=== PATIENT | female | born 1980 | race African-American/Black ===

== ENCOUNTER 2020-06-26 11:34 | Emergency (ER) | payer SELFPAY ==
--- OUTSIDE RECORDS SUMMARY | 2020-06-26 11:40 | XMS REPORT | Continuity of Care Document ---
:1980 Author Organization [facility] t Address [address] [place] [address] Dr. Jaimes [address] [place] [id number] Care Team Providers Name Role Phone Unavailable Unavailable Unavailable Problems This patient has no known problems. Allergies, Adverse Reactions, Alerts This patient has no known allergies or adverse reactions. Medications This patient has no known medications. Procedures This patient has no known procedures. Results This patient has no known results.
--- NOTE | 2020-06-26 14:13 | ER ---
Nurse's Notes [facility] Name: Baudilio Pagan Age: 40 yrs Sex: Female : 1980 Arrival Date: 06/26/2020 Time: 11:37 Bed 7 Private MD: Diagnosis: PICC Line malfunction Presentation: 06/26 11:45 Chief complaint: Patient states: Midline to R upper arm placed at [facility] for ss antibiotic therapy. Pt reports that her home health nurse instructed her to come to the ED to have it removed because it looks like it may be leaking. Coronavirus screen: Client denies travel out of the [place] in the last 14 days. At this time, the client does not indicate any symptoms associated with coronavirus-19. Ebola Screen: Patient denies exposure to infectious person. Patient denies travel to an Ebola-affected area in the 21 days before illness onset. Initial Sepsis Screen: Does the patient meet any 2 criteria? No. Patient's initial sepsis screen is negative. Does the patient have a suspected source of infection? No. Patient's initial sepsis screen is negative. Risk Assessment: Do you want to hurt yourself or someone else? Patient reports no desire to harm self or others. Onset of symptoms is unknown. 11:45 Method Of Arrival: Wheelchair 11:45 Acuity: ZAYRA 4 ss Historical: - Allergies: 11:48 Lisinopril; ss - PSHx: 11:48 Tubal ligation; ss - Immunization history:: Adult Immunizations up to date. - Social history:: Smoking status: Patient denies any tobacco usage or history of. Screenin:09 Abuse screen: Denies threats or abuse. Denies injuries from another. Nutritional ph screening: No deficits noted. Tuberculosis screening: No symptoms or risk factors identified. Fall Risk None identified. Assessment: 12:27 General: Appears in no apparent distress. comfortable, obese, well groomed, Behavior is ph calm, cooperative, appropriate for age, Denies fever. 14:04 Pain: Denies pain. Neuro: Level of Consciousness is awake, alert, obeys commands, ph Oriented to person, place, time, situation. Cardiovascular: Capillary refill < 3 seconds in bilateral fingers Patient's skin is warm and dry. Respiratory: Airway is patent Respiratory effort is even, unlabored, Respiratory pattern is regular, symmetrical. Derm: Skin is healthy with good turgor, Skin is pink, warm \T\ dry. Musculoskeletal: Circulation, motion, and sensation intact. Range of motion: intact in all extremities. 14:14 Reassessment: Pt reports leaking from mid-line, removed dressing and attempted to flush ph w/ NS, pt reported pain when flushing, fluid noted to be leaking from insertion site, ERP notified, verbal order received to d/c line, pt tolerated well, catheter appears to be intact, pressure dressing placed to R upper arm. 14:37 Reassessment: Patient appears in no apparent distress at this time. Patient and/or ph family updated on plan of care and expected duration. Pain level reassessed. Patient is alert, oriented x 3, equal unlabored respirations, skin warm/dry/pink. Pt instructed to follow up w/ PCP to see if mid-line needs to be replaced, d/c home. Vital Signs: 11:45 BP 144 / 97; Pulse 115; Resp 16; Temp 98.4(TE); Pulse Ox 98% on R/A; Weight 108.86 kg; ss Height 5 ft. 7 in. (170.18 cm); Pain 0/10; 14:37 BP 138 / 78; Pulse 101; Resp 18; Temp 98.1; Pulse Ox 99% on R/A; ph 11:45 Body Mass Index 37.59 (108.86 kg, 170.18 cm) ED Course: 11:37 Patient arrived in ED. ds1 11:48 Triage completed. ss 11:48 Arm band placed on right wrist. ss 11:54 Andi Avalos, RN is Primary Nurse. ll1 12:08 Mary Mooney, RN is Primary Nurse. ph 12:09 Patient has correct armband on for positive identification. Bed in low position. Call ph light in reach. Side rails up X 1. Pulse ox on. NIBP on. Door closed. Noise minimized. Warm blanket given. 12:16 Benja Renee MD is Attending Physician. kdr 14:12 Accessed Mid-line to R upper arm using per hospital protocol. Dressing intact. IV ph discontinued. 14:38 No provider procedures requiring assistance completed. ph Administered Medications: No medications were administered Outcome: 14:12 Discharge ordered by . kdr 14:38 Discharged to home via wheelchair, with family. ph 14:38 Condition: good 14:38 Discharge instructions given to patient, Instructed on discharge instructions, follow up and referral plans. Demonstrated understanding of instructions, follow-up care. 14:40 Patient left the ED. ph Signatures: Benja Renee MD MD [facility] Lidia Cartwright ds1 Esthela Gonzales RN RN ss Mary Mooney RN RN ph Andi Avalos RN RN ll1 Corrections: (The following items were deleted from the chart) 14:12 12:27 General: Appears ph ph
--- NOTE | 2020-06-26 14:13 | EDPHYS ---
Physician Documentation [facility] Name: Baudilio Pagan Age: 40 yrs Sex: Female : 1980 Arrival Date: 06/26/2020 Time: 11:37 Bed 7 Private MD: ED Physician Benja Renee HPI: 06/26 16:52 This 40 yrs old Black Female presents to ER via Wheelchair with complaints of Picc Line kdr Leaking Fluid. 16:52 The patient noted in since last night that she has had fluid leaking from the PIC line. kdr She noted slight discomfort around the line. 17:51 Onset: The symptoms/episode began/occurred last night. Severity of symptoms: At their kdr worst the symptoms were very mild in the emergency department the symptoms are unchanged. The patient has not experienced similar symptoms in the past. The patient has not recently seen a physician. The patient is being treated for unknown infection and has had a PIC line installed. She noted last night that she was unable to infuse fluids and that there was clear fluid leaking when she tried to infused her medications. Historical: - Allergies: 11:48 Lisinopril; ss - PSHx: 11:48 Tubal ligation; ss - Immunization history:: Adult Immunizations up to date. - Social history:: Smoking status: Patient denies any tobacco usage or history of. ROS: 17:51 Constitutional: Negative for fever, chills, and weight loss. kdr 17:51 MS/extremity: Positive for PIC line in right upper arm intact but apparently non-fuctional. Exam: 17:51 Constitutional: This is a well developed, well nourished patient who is awake, alert, kdr and in no acute distress. Head/Face: Normocephalic, atraumatic. Eyes: Pupils equal round and reactive to light, extra-ocular motions intact. Lids and lashes normal. Conjunctiva and sclera are non-icteric and not injected. Cornea within normal limits. Periorbital areas with no swelling, redness, or edema. 17:51 Musculoskeletal/extremity: Extremities: noted in the right bicep and right antecubital area: PIC line in place but non-functional. Vital Signs: 11:45 BP 144 / 97; Pulse 115; Resp 16; Temp 98.4(TE); Pulse Ox 98% on R/A; Weight 108.86 kg; ss Height 5 ft. 7 in. (170.18 cm); Pain 0/10; 14:37 BP 138 / 78; Pulse 101; Resp 18; Temp 98.1; Pulse Ox 99% on R/A; ph 11:45 Body Mass Index 37.59 (108.86 kg, 170.18 cm) ss MDM: 14:12 Patient medically screened. kdr 17:51 Data reviewed: vital signs, nurses notes. Counseling: I had a detailed discussion with kdr the patient and/or guardian regarding: the historical points, exam findings, and any diagnostic results supporting the discharge/admit diagnosis, the need for outpatient follow up. Administered Medications: No medications were administered Disposition: 06/26/20 14:12 Discharged to Home. Impression: PICC Line malfunction. - Condition is Stable. - Medication Reconciliation Form, Thank You Letter form. - Follow up: Private Physician; When: 2 - 3 days; Reason: If symptoms return, Further diagnostic work-up, Recheck today's complaints, Continuance of care, Re-evaluation by your physician. - Problem is new. - Symptoms are resolved. - Notes: You will need to follow-up with your doctor to have the PIC line replaced if still needed Signatures: Benja Renee MD MD [facility] Esthela Gonzales RN RN Mary Mooney RN RN ph Corrections: (The following items were deleted from the chart) 14:40 14:12 06/26/2020 14:12 Discharged to Home. Impression: PICC Line malfunction. Condition ph is Stable. Forms are Medication Reconciliation Form, Thank You Letter, Antibiotic Education, Prescription Opioid Use. Follow up: Private Physician; When: 2 - 3 days; Reason: If symptoms return, Further diagnostic work-up, Recheck today's complaints, Continuance of care, Re-evaluation by your physician. Problem is new. Symptoms are resolved. kdr
[2020-06-26 14:46] VITALS: BP 138/78; TEMP 98.1; O2SAT 99
== END 2020-06-26 14:40 | disposition home or self-care (01) ==
LOC: ER 11:34
DX: T82.898A Other specified complication of vascular prosthetic devices, implants and grafts, initial encounter (principal); Z88.8 Allergy status to other drugs, medicaments and biological substances
CPT/HCPCS: 99284

== ENCOUNTER 2025-03-20 18:26 | Emergency (ER) | payer OTHER, SELFPAY ==
[2025-03-20 19:12] LABS: Absolute Basophils 0.1 K/uL (0-0.5); Absolute Eosinophils 0.1 K/uL (0-0.5); Absolute Lymphocytes (CBC) 1.4 K/uL (0.7-4.9); Absolute Neutrophil 9.9 K/uL (1.8-8.0); Basophils % 0.6 % (0-1.3); Eosinophils % 0.6 % (0-4.4); Hematocrit 33.2 % (36.0-45.0); Hemoglobin 10.8 g/dL (12.0-15.0); Lymphocytes % 11.5 % (15.3-44.8); MCH 32.4 pg (27.0-35.0); MCHC 32.6 g/dL (32.0-36.0); MCV 99.5 fL (80-100); MPV 8.3 fL (7.6-11.3); Monocytes % 7.7 % (3.3-12.3); Neutrophils % 79.6 % (41.7-73.7); Platelets 284 thou/uL (152-406); RBC Red Blood Cell Count 3.33 M/uL (3.86-4.86); Red Cell Distribution Width 19.3 % (12.1-15.2)
[2025-03-20 19:29] LABS: ALT/SGPT 16 U/L (13-56); Albumin 3.2 g/dL (3.4-5.0); Albumin/Globulin Ratio 0.7 (1.1-1.8); Alkaline Phosphatase 55 U/L (45-117); Anion Gap 10.5 mEq/L (5.0-15.0); BUN Blood Urea Nitrogen 17 mg/dL (7-18); Bicarbonate 23 mEq/L (21-32); Bilirubin Total 0.2 mg/dL (0.2-1.0); Globulin 4.3 g/dL (2.3-3.5); Glomerular Filtration Rate 79 ml/min (=/>90); Glucose Level 113 mg/dL (74-106); Magnesium 1.5 mg/dL (1.6-2.4); Potassium 3.5 mEq/L (3.5-5.1); Protein, Total 7.5 g/dL (6.4-8.2); Sodium Level 138 mEq/L (136-145); Troponin High Sensitivity 12.8 pg/mL (<58.9)
[2025-03-20 19:30] LABS: AST/SGOT < 10 U/L (15-37); Bilirubin Direct < 0.2 mg/dL (0-0.2)
[2025-03-20 19:39] LABS: Specific Gravity 1.023 (1.005-1.030)
[2025-03-20 19:40] LABS: Specific Gravity 1.023 (1.005-1.030); Urine Bacteria None Seen /HPF (<20); Urine Bilirubin NEGATIVE (Negative); Urine Blood Negative (Negative); Urine Clarity Turbid (Clear); Urine Color Light-Yellow (Yellow); Urine Culture Reflex Order NOT NEEDED; Urine Glucose NEGATIVE (Negative); Urine Ketones NEGATIVE (Negative); Urine Microscopic Reflex YN ORDER UMIC; Urine Mucus Slight /HPF (None Seen); Urine Nitrite NEGATIVE (Negative); Urine Protein 2+ (Negative); Urine RBC <5 /HPF (None Seen); Urine Urobilinogen Normal (Normal); Urine WBC Clump Rare /HPF (None Seen); Urine Yeast (Budding) Trace /HPF (None Seen)
[2025-03-20] MEDS ORDERED: NA CHLORIDE 0.9% 100 ML ONE (19:43)
[2025-03-20] MEDS ORDERED: NA CHLORIDE 0.9% 1,000 ML ONE (19:43)
[2025-03-20] MEDS ORDERED: LEVETIRACETAM 500 MG/5 ML VIAL IV ONE (19:43)
[2025-03-20 19:48] LABS: Barbiturates NEGATIVE (NEGATIVE); Benzodiazepines NEGATIVE (NEGATIVE); Cocaine NEGATIVE (NEGATIVE); METHAMPHETAM NEGATIVE (NEGATIVE); Methadone NEGATIVE (NEGATIVE); Opiates NEGATIVE (NEGATIVE); Phencyclidine NEGATIVE (NEGATIVE); THC Cannibis NEGATIVE (NEGATIVE)
--- NOTE | 2025-03-20 19:56 | RAD REPORT ---
EXAMINATION: Head Brain Wo Cont CLINICAL INDICATION: Female, 44 years old.SEIZURE TECHNIQUE: Axial CT images from the skull base to the vertex without intravenous contrast. Coronal an d sagittal reformatted images were created from the data set. One or more of the following dose reduction techniques were used: Automated exposure control, adjustment of the mA and/or kV according to patient size, and/or iterative reconstruction. Unless otherwise specified, incidental findings do not require dedicated imaging follow-up. [id number]. COMPARISON: No prior exam. FINDINGS: INTRACRANIAL: No acute intracranial hemorrhage. No hydrocephalus. No mass effect or midline shift. No significant white matter disease. Empty sella, typically a normal variant. VASCULATURE: No visualized abnormalities in the arteries or dural venous sinuses. SCALP/SKULL: No calvarial fracture identified. No acute soft tissue abnormality. SINUSES: Circumferential thickening of maxillary sinuses as well as several ethmoid air cells and the left frontal sinus. No significant mastoid fluid. IMPRESSION: No acute intracranial abnormality. Paranasal sinus inflammatory disease.
--- NOTE | 2025-03-20 20:44 | ER ---
Nurse's Notes [facility] Name: Baudilio Pagan Age: 44 yrs Sex: Female : 1980 Arrival Date: 03/20/2025 Time: 18:26 Bed 7 Private MD: Diagnosis: Other seizures Presentation: 03/20 18:27 Chief complaint: EMS states: toned out to patient home for seizures. Pt reports having ld1 seizures more frequently, began having seizures for unknown reason in September. Neurology appt set for 04/25/25. Denies pain/injury. Coronavirus screen: At this time, the client does not indicate any symptoms associated with coronavirus-19. Ebola Screen: No symptoms or risks identified at this time. Initial Sepsis Screen: Does the patient meet any 2 criteria? No. Patient's initial sepsis screen is negative. Does the patient have a suspected source of infection? No. Patient's initial sepsis screen is negative. Risk Assessment: Do you want to hurt yourself or someone else? Patient reports no desire to harm self or others. Onset of symptoms was March 20, 2025 at 18:30. 18:27 Method Of Arrival: EMS: [facility] ld1 18:27 Acuity: ZAYRA 3 ld1 Triage Assessment: 18:34 General: Appears in no apparent distress. comfortable, Behavior is calm, cooperative, ld1 appropriate for age. Pain: Denies pain. EENT: No signs and/or symptoms were reported regarding the EENT system. Neuro: Level of Consciousness is awake, alert, obeys commands, Oriented to person, place, time, situation, Seizure activity reported prior to arrival. Cardiovascular: Capillary refill < 3 seconds Patient's skin is warm and dry. Respiratory: Airway is patent Respiratory effort is even, unlabored. GI: Abdomen is round non-distended. : No signs and/or symptoms were reported regarding the genitourinary system. Derm: No signs and/or symptoms reported regarding the dermatologic system. Musculoskeletal: No signs and/or symptoms reported regarding the musculoskeletal system. CERTIFIED CAREGIVER: 21:02 unknown al5 Historical: - Allergies: 18:30 Lisinopril; ld1 - Home Meds: 18:30 carvedilol oral [Active]; amlodipine [Active]; Hydralazine Oral [Active]; losartan oral ld1 [Active]; Ferrous Sulfate Oral [Active]; - PMHx: 18:30 Hypertensive disorder; Anemia; ld1 - Immunization history:: Adult Immunizations up to date. - Infectious Disease History:: Denies. - Social history:: Smoking status: Patient denies any tobacco usage or history of. Screenin:20 [facility] ED Fall Risk Assessment (Adult) History of falling in the last 3 months, al5 including since admission No falls in past 3 months (0 pts) Confusion or Disorientation No (0 pts) Intoxicated or Sedated No (0 pts) Impaired Gait No (0 pts) Mobility Assist Device Used No (0 pt) Altered Elimination No (0 pt) Score/Fall Risk Level 0 - 2 = Low Risk Oriented to surroundings, Maintained a safe environment, Hourly rounding (assess needs \T\ fall precautionary measures) done. Abuse screen: Denies threats or abuse. Denies injuries from another. Nutritional screening: No deficits noted. Tuberculosis screening: No symptoms or risk factors identified. Assessment: 19:20 General: Appears in no apparent distress. comfortable, Behavior is calm, cooperative. al5 Pain: Denies pain. Neuro: Level of Consciousness is awake, alert, obeys commands, Oriented to person, place, time, situation. Cardiovascular: Capillary refill < 3 seconds Patient's skin is warm and dry. Rhythm is sinus rhythm. Respiratory: Airway is patent Respiratory effort is even, unlabored, Respiratory pattern is regular, symmetrical. GI: No signs and/or symptoms were reported involving the gastrointestinal system. : No signs and/or symptoms were reported regarding the genitourinary system. EENT: No signs and/or symptoms were reported regarding the EENT system. Derm: Skin is intact, is healthy with good turgor, Skin is pink, warm \T\ dry. normal. Musculoskeletal: No signs and/or symptoms reported regarding the musculoskeletal system. 20:33 Reassessment: Patient appears in no apparent distress at this time. No changes from al5 previously documented assessment. Patient and/or family updated on plan of care and expected duration. Pain level reassessed. Patient is alert, oriented x 3, equal unlabored respirations, skin warm/dry/pink. Vital Signs: 18:27 BP 128 / 85; Pulse 107; Resp 18; Temp 97.6(TE); Pulse Ox 97% on R/A; Weight 122.47 kg; ld1 Height 5 ft. 9 in. ; Pain 0/10; 19:30 BP 124 / 57; Pulse 79; Resp 18; Pulse Ox 99% ; al5 20:00 BP 113 / 66; Pulse 78; Resp 17; Pulse Ox 96% ; al5 20:30 BP 116 / 67; Pulse 74; Resp 15; Pulse Ox 98% ; al5 21:02 BP 116 / 61; Pulse 79; Resp 18; Pulse Ox 96% ; al5 18:27 Body Mass Index 39.87 (122.47 kg, 175.26 cm) ld1 18:27 Pain Scale: Adult ld1 [place] Coma Score: 18:34 Eye Response: spontaneous(4). Motor Response: obeys commands(6). Verbal Response: ld1 oriented(5). Total: 15. ED Course: 18:27 Patient arrived in ED. ld1 18:30 Triage completed. ld1 18:34 Arm band placed on right wrist. ld1 18:38 Megan Kumar PA-C is PHCP. sb4 18:38 Moe Tracy MD is Attending Physician. sb4 18:58 Inserted saline lock: 20 gauge in left antecubital area, using aseptic technique. Blood ld1 collected. Flushed with 10 mL NS. 19:12 Nicolas Vasquez, SAAD is Primary Nurse. bp 19:20 Patient has correct armband on for positive identification. Bed in low position. Call al5 light in reach. Side rails up X2. Seizure precautions initiated. Provided Education on: plan of care. 19:43 CT Head Brain wo Cont In Process Unspecified. EDMS 20:34 No provider procedures requiring assistance completed. al5 20:44 Leonel Cardenas MD is Referral Physician. sb4 21:03 IV discontinued, intact, bleeding controlled, No redness/swelling at site. Pressure al5 dressing applied. Administered Medications: 20:07 Drug: NS 0.9% IV 1000 ml IV at 1000 ml once; to be given as a bolus over 60 minutes al5 Route: IV; Rate: 1000 ml; Site: left antecubital; 21:03 Follow up: Response: No adverse reaction; IV Status: Completed infusion; IV Intake: al5 1000ml 20:07 Drug: Keppra IV 1000 mg IV at calculated rate once Route: IV; Rate: calculated rate; al5 Site: left antecubital; 20:30 Follow up: Response: No adverse reaction; IV Status: Completed infusion; IV Intake: al5 100ml 21:00 Drug: Magnesium PO 400 mg PO once Route: PO; al5 21:00 Follow up: Response: No adverse reaction; Medication administered at discharge. al5 Medication: 20:35 VIS not applicable for this client. al5 Intake: 20:30 IV: 100ml; Total: 100ml. al5 21:03 IV: 1000ml; Total: 1100ml. al5 Outcome: 20:44 Discharge ordered by MD. sb4 21:03 Discharged to home ambulatory, with family, al5 21:03 Condition: good 21:03 Discharge instructions given to patient, Instructed on discharge instructions, follow up and referral plans. medication usage, Demonstrated understanding of instructions, follow-up care, medications, Prescriptions given X 2, 21:24 Patient left the ED. vc1 Signatures: Dispatcher [employer] EDNicolas Hanson RN Dayis Arevalo RN RN ld1 Brenda Flores RN RN vc1 Megan Kumar PA-Korin PA-C [email or web address] Aurelia Melo RN RN al5 Corrections: (The following items were deleted from the chart) 18:34 18:30 Allergies: Hydrocodone-Acetaminophen; ld1 ld1
--- NOTE | 2025-03-20 20:44 | EDPHYS ---
Physician Documentation [facility] Name: Baudilio Pagan Age: 44 yrs Sex: Female : 1980 Arrival Date: 03/20/2025 Time: 18:26 Bed 7 Private MD: ED Physician Moe Tracy HPI: 03/20 23:24 This 44 yrs old Black Female presents to ER via EMS with complaints of Seizure. sb4 23:25 Patient states that she has had a few seizures within the past 5 months. She states sb4 that she has been seen at several different hospitals, had blood work and CT scans done and just told to follow-up. She has not been put on any medications. States that initially, she believes the seizures were generalized shaking with a postictal phase but most recently she states that she is she has been having episodes where she feels that she blanks out and does not remember what happens. She thinks she had 2 today. She is not postictal upon arrival. Has no complaints at this time. 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 - Infectious Disease History:: Denies. - Social history:: Smoking status: Patient denies any tobacco usage or history of. ROS: 23:25 Constitutional: Negative for fever, chills, and weight loss, sb4 23:25 Neuro: Positive for seizure activity, 23:25 All other systems are negative, Exam: 23:25 Constitutional: This is a well developed, well nourished patient who is awake, alert, sb4 and in no acute distress. Head/Face: Normocephalic, atraumatic. Eyes: Extra-ocular motions intact. Periorbital areas with no swelling, redness, or edema. ENT: Mucous membranes moist. Cardiovascular: Regular rate and rhythm with a normal S1 and S2. Respiratory: No increased work of breathing, no retractions or nasal flaring. Abdomen/GI: Soft, non-tender, no distension. Skin: Warm, dry with normal turgor. Normal color with no rashes, no lesions, and no evidence of cellulitis. MS/ Extremity: Pulses equal, no cyanosis. Neurovascular intact. Full, normal range of motion. Neuro: Awake and alert, GCS 15, oriented to person, place, time, and situation. Motor strength 5/5 in all extremities. Sensory grossly intact. Vital Signs: 18:27 BP 128 / 85; Pulse 107; Resp 18; Temp 97.6(TE); Pulse Ox 97% on R/A; Weight 122.47 kg; ld1 Height 5 ft. 9 in. ; Pain 0/10; 19:30 BP 124 / 57; Pulse 79; Resp 18; Pulse Ox 99% ; al5 20:00 BP 113 / 66; Pulse 78; Resp 17; Pulse Ox 96% ; al5 20:30 BP 116 / 67; Pulse 74; Resp 15; Pulse Ox 98% ; al5 21:02 BP 116 / 61; Pulse 79; Resp 18; Pulse Ox 96% ; al5 18:27 Body Mass Index 39.87 (122.47 kg, 175.26 cm) ld1 18:27 Pain Scale: Adult ld1 Trisha Coma Score: 18:34 Eye Response: spontaneous(4). Motor Response: obeys commands(6). Verbal Response: ld1 oriented(5). Total: 15. MDM: 18:40 Medical Screening Exam initiated sb4 23:26 Data reviewed: vital signs, nurses notes, EMS record, lab test result(s), radiologic sb4 studies, and as a result, I will discharge patient. Counseling: I had a detailed discussion with the patient and/or guardian regarding the historical points, exam findings, and any diagnostic results supporting the discharge/admit diagnosis, lab results, radiology results, the need for outpatient follow up, a neurologist, to return to the emergency department if symptoms worsen or persist or if there are any questions or concerns that arise at home. ED course: Patient has neurology appointment scheduled for the beginning of April. Will start patient on Keppra 500 mg twice daily. She is instructed to return to the ED for any new or worsening symptoms. She is in agreement with plan. 03/20 18:39 Order name: Basic Metabolic Panel; Complete Time: 19:33 sb4 03/20 18:39 Order name: CBC with Diff; Complete Time: 19:34 sb4 03/20 18:39 Order name: Hepatic Function; Complete Time: 19:33 sb4 03/20 18:39 Order name: Magnesium; Complete Time: 19:33 sb4 03/20 18:39 Order name: Test, Urine; Complete Time: 19:41 sb4 03/20 18:39 Order name: Troponin High Sensitivity; Complete Time: 19:33 sb4 03/20 18:39 Order name: UDS; Complete Time: 19:48 sb4 03/20 18:39 Order name: Urinalysis w/ reflexes; Complete Time: 19:41 sb4 03/20 18:39 Order name: CT Head Brain wo Cont; Complete Time: 19:58 sb4 03/20 18:39 Order name: EKG; Complete Time: 18:39 sb4 03/20 18:39 Order name: EKG - Nurse/Tech; Complete Time: 20:30 sb4 03/20 18:39 Order name: IV Saline Lock; Complete Time: 18:58 sb4 03/20 18:39 Order name: Labs collected and sent; Complete Time: 18:58 sb4 EC:07 Rate is 78 beats/min. Rhythm is regular, Normal Sinus Rhythm. [place] interval is normal at sb4 174 msec. QRS interval is normal at 88 msec. QT interval is normal at 384 msec. No Q waves. T waves are Normal. No ST changes noted. Clinical impression: No evidence of ischemia. Interpreted by me. Reviewed by me. Administered Medications: 20:07 Drug: NS 0.9% IV 1000 ml IV at 1000 ml once; to be given as a bolus over 60 minutes al5 Route: IV; Rate: 1000 ml; Site: left antecubital; 21:03 Follow up: Response: No adverse reaction; IV Status: Completed infusion; IV Intake: al5 1000ml 20:07 Drug: Keppra IV 1000 mg IV at calculated rate once Route: IV; Rate: calculated rate; al5 Site: left antecubital; 20:30 Follow up: Response: No adverse reaction; IV Status: Completed infusion; IV Intake: al5 100ml 21:00 Drug: Magnesium PO 400 mg PO once Route: PO; al5 21:00 Follow up: Response: No adverse reaction; Medication administered at discharge. al5 Disposition Summary: 03/20/25 20:44 Discharge Ordered Notes: Location: Home sb4 Problem: new sb4 Symptoms: have improved sb4 Condition: Stable sb4 Diagnosis - Other seizures sb4 Followup: sb4 - With: Leonel Cardenas MD - When: As needed - Reason: Further diagnostic work-up, Recheck today's complaints, Re-evaluation by your physician Discharge Instructions: - Discharge Summary Sheet sb4 - Hypomagnesemia sb4 - Seizure, Adult sb4 Forms: - Patient Portal Instructions sb4 - Leadership Thank You Letter sb4 Prescriptions: - Hydroxyzine HCl 50 mg Oral tablet - take 1 tablet ORAL route At bedtime As needed; 20 tablet; Refills: 0, Product sb4 Selection Permitted - Keppra 500 mg Oral tablet - take 1 tablet ORAL route every 12 hours; 40 tablet; Refills: 0, Product sb4 Selection Permitted Addendum: 03/22/2025 07:04 Co-signature as Attending Physician, Moe Tracy MD. r n Signatures: Dispatcher [employer] EDMoe Diallo MD MD rn Sims, Lauren, RN RN ld1 Megan Kumar PA-C PAFloydC sb4 Aurelia Melo RN RN al5 Corrections: (The following items were deleted from the chart) 03/20 18:34 18:30 Allergies: Hydrocodone-Acetaminophen; ld1 ld1 18:39 18:39 BASIC METABOLIC PANEL+C.LAB.BRZ ordered. EDMS EDMS 18:39 18:39 CBC+H.LAB.BRZ ordered. EDMS EDMS 18:39 18:39 HEPATIC FUNCTION+C.LAB.BRZ ordered. EDMS EDMS 18:39 18:39 MAGNESIUM+C.LAB.BRZ ordered. EDMS EDMS 18:39 18:39 Test, Urine+UC.LAB.BRZ ordered. EDMS EDMS 18:39 18:39 Troponin High Sensitivity+C.LAB.BRZ ordered. EDMS EDMS 18:39 18:39 URINE DRUG SCREEN+UC.LAB.BRZ ordered. EDMS EDMS 18:40 18:39 Urinalysis+U.LAB.BRZ ordered. EDMS EDMS
[2025-03-20] MEDS ORDERED: MAGNESIUM OXIDE 400 MG TAB ONE (20:49)
[2025-03-21 08:52] VITALS: TEMP 97.6
[2025-03-21 08:58] VITALS: BP 116/61; O2SAT 96
--- NOTE | 2025-03-22 11:58 | EKG ---
Test Date: 2025-03-20 Test Time: 19:55:16 Sorting Machine Attendant: OC MEASUREMENT RESULTS: Intervals: Rate: 78 DC: 174 QRSD: 88 QT: 384 QTc: 437 [place]: P: 63 DC: 174 QRS: 9 T: 20 INTERPRETIVE STATEMENTS: Normal sinus rhythm Cannot rule out Anterior infarct, age undetermined Abnormal ECG Compared to ECG 06/30/2016 08:52:07 Sinus tachycardia no longer present Left ventricular hypertrophy no longer present Myocardial infarct finding still present Electronically Signed On 03-22-25 11:55:31 CDT by Imer Krishnamurthy
== END 2025-03-20 21:24 | disposition home or self-care (01) ==
LOC: ER 18:26
DX: G40.89 Other seizures (principal)
CPT/HCPCS: 85025; 81001; 80048; 36415; 83735; 81025; 80076; 84484; 80307; 70450; J1953; J7030; 93005